=== PATIENT | female | born 1955 | race Caucasian/White ===

== ENCOUNTER 2016-12-19 22:26 | Emergency (ER) | payer OTHER ==
[~2016-12-19] VITALS: Ht 172.7 cm; Wt 93.2 kg
[~2016-12-19 22:26] MED LIST: AQUANIL HC120 ML TP; ASPERDRINK81 MG PO; ASPIR 8181 M1 PO; ASPIRIN81 M1 PO; BENADRYL50 MG PO; BENTYL20 MG PO; CLONAZEPAM1 MG PO; FLAGYL500 MG PO; FLONASE16 G1 BOTH NARES; HYDROCORTISONE30 G2 TP; K-DUR20 MEQ PO; K-Dur PO; KETOCONAZOLE120 ML TP; KLONOPIN1 MG PO; KlonoPIN PO; LASIX20 MG PO; LASIX40 MG PO; LEVOTHROID50 MCG PO; LEVOTHYROXINE50 MCG PO; Lasix PO; Levothroid,Synthroid PO; METOPROLOL ER; MUCUS ER600 MG PO; NAPROSYN500 MG PO; NIZORAL A-D120 ML TP; OMEPRAZOLE20 MG PO; PEPCID20 MG PO; PERCOCET 5/31 TABLET PO; POTASSIUM; PREDNISONE10 MG PO; PRILOSEC OTC20 MG PO; PRILOSEC20 MG PO; PriLOSEC PO; Protonix PO; ROBITUSSIN NIG118 ML PO; SERTRALINE HCL100 MG PO; SIMVASTATIN40 M1 PO; SIMVASTATIN40 MG PO; SYSTANE 0.3-0.1 EACH BOTH EYES; TESSALON PERLE100 MG PO; Ultram PO; VALTREX1000 MG PO; Vibramycin, Doryx PO; WOMEN'S LAXATIVE5 M1 PO; ZOCOR40 MG PO; ZOLOFT100 MG PO; predniSONE PO
[2016-12-19 22:47] LABS: HEMATOCRIT 40.2 % (36.0-46.0); MCH 30.1 PG (29.0-34.0); MCHC 33.6 G/DL (30.0-36.0); MCV 89.7 FL (83-99); MEAN PLAT.VOLUME 9.6 uM^3 (9.5-12.4); PLATELET COUNT 235 K/uL (156-360); RBC DIS.WIDTH-CV 14.3 % (11.8-14.6); RBC DIS.WIDTH-SD 45.6 % (39-53); RED BLOOD COUNT 4.48 M/uL (3.80-5.20)
[2016-12-19 22:57] LABS: CHLORIDE 102 mEq/L (99-109); POTASSIUM 4.1 mEq/L (3.7-5.4); SODIUM 141 mEq/L (136-147)
[2016-12-19 22:58] LABS: GLUCOSE 127 mg/dL (70-99)
[2016-12-19 23:00] LABS: ANION GAP 12 MEQ/L (2-14)
[2016-12-19 23:02] LABS: GFR ESTIMATE (CALCULATED) > 59 mL/min/
[2016-12-19 23:03] LABS: UREA NITROGEN (BUN) 11 mg/dL (9-23)
[2016-12-19 23:28] LABS: TROP-I INTERPRETATION NEGATIVE; TROPONIN-I < 0.01 ng/mL (0.0-0.30)
[2016-12-19 23:31] LABS: INTERNAL CONTROL VALID? YES; MONOSPOT (MONONUCLEOSIS SEROL) NEGATIVE
[2016-12-19 23:52] LABS: INFLUENZA A VIRAL ANTIGEN NEGATIVE; INFLUENZA B VIRAL ANTIGEN NEGATIVE
[2016-12-20] MEDS ORDERED: PROAIR HFA8.5 GM IH (00:23)
[2016-12-20] MEDS ORDERED: PREDNISONE20 MG PO (00:23)
[2016-12-20] MEDS ORDERED: DOXYCYCLINE HY100 M3 PO (00:23)
[2016-12-20 01:14] VITALS: BP 119/70
== END 2016-12-20 01:21 | disposition home or self-care (01) ==
LOC: EME 22:26
PROVIDERS: Emergency Medicine
DX: J06.9 Acute upper respiratory infection, unspecified (principal); J20.9 Acute bronchitis, unspecified; E03.9 Hypothyroidism, unspecified; J45.909 Unspecified asthma, uncomplicated; E78.5 Hyperlipidemia, unspecified; K21.9 Gastro-esophageal reflux disease without esophagitis; I25.10 Atherosclerotic heart disease of native coronary artery without angina pectoris; Z79.82 Long term (current) use of aspirin; F17.200 Nicotine dependence, unspecified, uncomplicated
CPT/HCPCS: 71020; 80048; 84443; 84484; 85027; 86308; 87502; 93005; 94640; 99281; 99285; J1885; J2930; J7030

== ENCOUNTER 2017-11-14 19:27 | Emergency (ER) | payer OTHER ==
[~2017-11-14] VITALS: Ht 170.2 cm; Wt 94.3 kg
[~2017-11-14 19:27] MED LIST changes: +DOXYCYCLINE HY100 M3 PO; +PREDNISONE20 MG PO; +PROAIR HFA8.5 GM IH
[2017-11-14] MEDS ORDERED: ALBUTEROL2.5 MG/3 M IH (20:57)
[2017-11-14] MEDS ORDERED: ZITHROMAX Z-PA250 MG PO (20:57)
[2017-11-14] MEDS ORDERED: PREDNISONE20 MG PO (20:57)
[2017-11-14 21:17] VITALS: BP 112/81
== END 2017-11-14 21:27 | disposition home or self-care (01) ==
LOC: EME 19:27
DX: J20.9 Acute bronchitis, unspecified (principal); J44.1 Chronic obstructive pulmonary disease with (acute) exacerbation; J44.0 Chronic obstructive pulmonary disease with (acute) lower respiratory infection; F17.200 Nicotine dependence, unspecified, uncomplicated; E03.9 Hypothyroidism, unspecified; E78.5 Hyperlipidemia, unspecified; I25.10 Atherosclerotic heart disease of native coronary artery without angina pectoris; F32.9 Major depressive disorder, single episode, unspecified; K21.9 Gastro-esophageal reflux disease without esophagitis; F41.9 Anxiety disorder, unspecified; Z88.1 Allergy status to other antibiotic agents; Z88.0 Allergy status to penicillin; Z88.5 Allergy status to narcotic agent
CPT/HCPCS: 71020; 93005; 94640; 99281; 99284; J7512

== ENCOUNTER 2017-12-27 14:20 | Emergency (ER) | payer OTHER ==
[~2017-12-27] VITALS: Ht 172.7 cm; Wt 94.7 kg
[~2017-12-27 14:20] MED LIST changes: +ALBUTEROL2.5 MG/3 M IH; +ZITHROMAX Z-PA250 MG PO
[2017-12-27 14:38] LABS: BASOPHIL (%) 0.2 % (0-1); EOSINOPHIL (%) 1.2 % (0-5); EOSINOPHIL COUNT 0.1 K/uL (0-0.3); HEMOGLOBIN 12.1 G/DL (11.9-15.5); IMMATURE GRANULOCYTE (%) 0.3 % (0.0-0.7); LYMPHOCYTE (%) 26.3 % (15-42); LYMPHOCYTE COUNT 2.5 K/uL (1.0-2.8); MCH 29.8 PG (29.0-34.0); MCHC 32.7 G/DL (30.0-36.0); MCV 91.1 FL (83-99); MONOCYTE (%) 5.7 % (3-12); MONOCYTE COUNT 0.5 K/uL (0-0.8); NEUTROPHIL (%) 66.3 % (45-76); NEUTROPHIL COUNT 6.2 K/uL (1.8-6.4); PLATELET COUNT 207 K/uL (156-360); RBC DIS.WIDTH-CV 14.4 % (11.8-14.6); RBC DIS.WIDTH-SD 48.1 % (39-53); RED BLOOD COUNT 4.06 M/uL (3.80-5.20); WHITE BLOOD COUNT 9.4 K/uL (4.1-10.2)
[2017-12-27 14:46] LABS: ALBUMIN 3.8 g/dL (3.2-4.8); CHLORIDE 103 mEq/L (99-109); POTASSIUM 5.1 mEq/L (3.7-5.4); SODIUM 142 mEq/L (136-147)
[2017-12-27 14:47] LABS: MAGNESIUM 1.9 mg/dL (1.3-2.7)
[2017-12-27 14:49] LABS: GLUCOSE 149 mg/dL (70-99); TOTAL PROTEIN 6.6 g/dL (6.4-8.3)
[2017-12-27 14:50] LABS: PTT 26.1 SEC (25-37)
[2017-12-27 14:51] LABS: TOTAL BILIRUBIN 0.2 mg/dL (0.0-1.0)
[2017-12-27 14:52] LABS: ALKALINE PHOSPHATASE 91 IU/L (3-129)
[2017-12-27 14:53] LABS: CREATININE 0.8 mg/dL (0.6-1.3); GFR ESTIMATE (CALCULATED) > 59 mL/min/
[2017-12-27 14:54] LABS: AST (GOT) 11 IU/L (2-34); UREA NITROGEN (BUN) 16 mg/dL (9-23)
[2017-12-27 14:55] LABS: ALT (GPT) 14 IU/L (3-49)
[2017-12-27 14:56] LABS: CREATINE KINASE 67 IU/L (1-294); TOTAL CK 67 IU/L (1-294)
[2017-12-27 14:59] LABS: TROP-I INTERPRETATION NEGATIVE; TROPONIN-I < 0.01 ng/mL (0.0-0.30)
[2017-12-27 15:01] LABS: CK-MB 0.8 ng/mL (0.0-4.9); CKMB RELATIVE INDEX 1.2 (0.0-3.9)
[2017-12-27 15:18] LABS: LIPASE 38 U/L (1.0-51.0)
[2017-12-27] MEDS ORDERED: PERCOCET 5/31 TABLET PO (17:58)
[2017-12-27] MEDS ORDERED: ZOFRAN ODT4 MG PO (17:58)
[2017-12-27] MEDS ORDERED: MOTRIN800 MG PO (18:01)
[2017-12-27] MEDS ORDERED: COLACE100 MG PO (18:02)
[2017-12-27 18:50] VITALS: BP 118/63
== END 2017-12-27 19:02 | disposition home or self-care (01) ==
LOC: EME 14:20
PROVIDERS: Emergency Medicine
DX: K80.70 Calculus of gallbladder and bile duct without cholecystitis without obstruction (principal); K21.9 Gastro-esophageal reflux disease without esophagitis; J45.909 Unspecified asthma, uncomplicated; F41.9 Anxiety disorder, unspecified; F32.9 Major depressive disorder, single episode, unspecified; E78.5 Hyperlipidemia, unspecified; I25.10 Atherosclerotic heart disease of native coronary artery without angina pectoris; E03.9 Hypothyroidism, unspecified; Z79.82 Long term (current) use of aspirin; Z88.5 Allergy status to narcotic agent; Z88.1 Allergy status to other antibiotic agents; Z88.0 Allergy status to penicillin; Z91.041 Radiographic dye allergy status; F17.200 Nicotine dependence, unspecified, uncomplicated
CPT/HCPCS: 71046; 76705; 80053; 82550; 82553; 83690; 83735; 84484; 85025; 85610; 85730; 93005; J2405; J3010

== ENCOUNTER 2018-02-13 10:05 | Day surgery (SDC) | payer OTHER ==
[~2018-02-13] VITALS: Ht 170.2 cm; Wt 92.5 kg
[~2018-02-13 10:05] MED LIST changes: +COLACE100 MG PO; +COMBIVENT RESPIM4 GM IH; +LIPITOR10 MG PO; +MOTRIN800 MG PO; +ZOFRAN ODT4 MG PO
[2018-02-13] MEDS ORDERED: LIPITOR40 MG PO (10:40)
[2018-02-13 10:52] VITALS: BP 119/65
[2018-02-13 13:23] LABS: HEMATOCRIT 34.9 % (36.0-46.0); HEMOGLOBIN 11.5 G/DL (11.9-15.5); MCH 29.9 PG (29.0-34.0); MCV 90.9 FL (83-99); RBC DIS.WIDTH-CV 13.8 % (11.8-14.6); RBC DIS.WIDTH-SD 45.5 % (39-53); RED BLOOD COUNT 3.84 M/uL (3.80-5.20); WHITE BLOOD COUNT 8.8 K/uL (4.1-10.2)
[2018-02-13] MEDS ORDERED: OXAYDO5 MG PO (13:40)
[2018-02-13] MEDS ORDERED: NICOTINE PATCH1 EAC2 TD (13:40)
[2018-02-13 14:02] LABS: ALBUMIN 3.8 G/DL (3.2-4.8); ALKALINE PHOSPHATASE 71 IU/L (3-129); ALT (GPT) 14 IU/L (3-49); AST (GOT) 13 IU/L (2-34); CHLORIDE 104 MEQ/L (99-109); CREATININE 0.8 MG/DL (0.6-1.3); GFR ESTIMATE (CALCULATED) > 59 mL/min/; GLUCOSE 119 mg/dL (70-99); SODIUM 140 MEQ/L (136-147); TOTAL PROTEIN 6.3 G/DL (6.4-8.3); UREA NITROGEN (BUN) 17 mg/dL (9-23)
[2018-02-13 14:03] LABS: POTASSIUM 3.6 MEQ/L (3.7-5.4); TOTAL BILIRUBIN 0.6 MG/DL (0.0-1.0)
[2018-02-13 14:25] LABS: PLATELET COUNT 182 K/uL (156-360)
[2018-02-13 15:35] VITALS: BP 104/63
[2018-02-13 16:35] VITALS: BP 120/72
== END 2018-02-13 16:58 | disposition home or self-care (01) ==
LOC: SDC 10:05
PROVIDERS: Surgery
PROC: 0FT44ZZ Resection of Gallbladder, Percutaneous Endoscopic Approach (ICD-10-PCS; principal; 2018-02-13)
DX: K80.10 Calculus of gallbladder with chronic cholecystitis without obstruction (principal); K76.0 Fatty (change of) liver, not elsewhere classified; F31.9 Bipolar disorder, unspecified; E78.00 Pure hypercholesterolemia, unspecified; I10 Essential (primary) hypertension; I25.10 Atherosclerotic heart disease of native coronary artery without angina pectoris; Z79.82 Long term (current) use of aspirin; F17.200 Nicotine dependence, unspecified, uncomplicated; G89.29 Other chronic pain; M54.5 Low back pain; Z82.49 Family history of ischemic heart disease and other diseases of the circulatory system; Z91.041 Radiographic dye allergy status; Z88.5 Allergy status to narcotic agent; Z88.0 Allergy status to penicillin; Z88.8 Allergy status to other drugs, medicaments and biological substances
CPT/HCPCS: 80053; 85027; 88304; 94640; J1100; J1170; J1885; J2405; J2710